=== PATIENT | female | born 1970 | race Caucasian/White ===

== ENCOUNTER 2021-05-30 14:02 | Inpatient (IN) | payer BC ==
--- OUTSIDE RECORDS SUMMARY | 2021-05-30 14:04 | XMS REPORT | Continuity of Care Document ---
:[address] [facility] t Address [address] [place] [address] Care Team Providers Name Role Phone Asked, Pcp Primary Care Physician Unavailable KENDRA Attending Clinician Unavailable Bhavin Pepper MD Attending Clinician Froy PAL Attending Clinician Payers Payer Name Policy Type Policy Effective Date Expiration Date Sour ce Number BCBSTX PPO [id number] 2015 00:00:00 BCBSBCBS CHOICE [id number] PPO/FEDERAL 00:00:00 Hospital EMPL [id number] 2015-Presen tPPO Problems Condition Condition Condition Status Onset Resolution Last Treating Co mments Source Name Details Category Date Date Treatment Clinician Date No known No known Disease Metho di active active st problems problems Hospit a l Abnormal Abnormal Problem Active Unive rs weight weight ity of gain gain [place] [facility] Proteinuri Proteinuri Problem Active [facility] [place] [facility] Fatigue Fatigue Problem Active [facility] [place] [facility] Hypothyroi Hypothyroi Problem Active U nivers dism [facility] [place] [facility] ACUTE Condition Active 2013-03-09 Mem oria SINUSITIS, 07:31:31 l UNSPECIFIE ACUTE Flora nn D SINUSITIS, UNSPECIFIE D Active Condition 03/09/2013 [facility] ALLERGY, Condition Active 2013-03-09 M emoria ENVIRONMEN 07:31:31 l JOHN ALLERGY, Marcos n ENVIRONMEN JOHN Active Condition 03/09/2013 [facility] WRIST Condition Active 2013-03-09 Mem oria PAIN, 07:31:31 l RIGHT WRIST [place] PAIN, RIGHT Active Condition 03/09/2013 [facility] FRACTURE, Condition Active 2013-03-09 Memoria RADIUS, 07:31:31 l DISTAL Jim FRACTURE, RADIUS, DISTAL Active Condition 03/09/2013 [facility] CLOSED Condition Active 2013-03-09 Mem oria FRACTURE 07:31:31 l OF DISTAL CLOSED Flora nn END OF FRACTURE ULNA OF DISTAL END OF ULNA Active Condition 03/09/2013 [facility] Hypothyroi Problem Active 2013-06-11 M emoria dism 19:19:20 l [place] Hypothyroi dism Active [facility] Abnormal Problem Active 2013-06-11 Mem oria Weight 19:19:20 l Gain Abnormal Marcos n Weight Gain Active 3 [facility] Fatigue Problem Active 2013-06-11 Saul madyson 19:19:20 l Fatigue [place] Active 3 [facility] Allergies, Adverse Reactions, Alerts This patient has no known allergies or adverse reactions. Family History Family Member Diagnosis Comments Start Date Stop Date Source Unknown Family Family history of Family History [facility] Hypothy[facility] [place] [facility] Unknown Family Family history of Family History [facility] Diabetes Mellitus [facility] Father Family history of [facility] cerebrovascular [place] accident (CVA) [facility] Natural Diabetes [facility] Hy[facility] Natural father Stroke [facility] Natural mother Hyperlipidemia [facility] Natural sister [facility] thyroiditis Hospital Social History Social Habit Start Date Stop Date Quantity Comments Source Tobacco use and 2021-03-26 2021-03-26 Never used [facility] exposure 00:00:00 00:00:00 Hospital Alcohol intake 2021-03-26 2021-03-26 Current drinker [facility] dist 00:00:00 00:00:00 of alcohol Hospital (finding) Sex Ass[birth year] At [birth year] [facility] 00:00:00 00:00:00 Hospital Smoking Status Start Date Stop Date Source Never smoker [facility] Medications Ordered Filled Start Stop Current Ordering Indication Dosage Frequency Signature Comments Components Source Medication Medication Date Date Medication? Clinician (SIG) Name Name levothyroxi Yes 50ug QD Take 1 Meth autumn ne 6-11 tablet (50 st (SYNTHROID) 00:00: mcg total) Hospita 50 mcg 00 by mouth l tablet every morning. rosuvastati Yes 5mg QD Take 1 Meth autumn n (CRESTOR) 6-11 tablet (5 st 5 mg tablet 00:00: mg total) H ospita 00 by mouth l nightly. Inna Keith Yes AYLEEN TAKE 1 Univer s Thyroid 60 Thyroid 60 5-05 WIRFEL TABLET ity of MG Oral MG Oral 00:00: M.D. DAILY [place] Tablet Tablet 00 except Physici none on tuesday No Reported Yes (Active) M emoria Medications 8-19 l 19:19: Jim 20 CLARITIN Yes as needed Saul madyson TABS 5-17 l 07:31: Jim 31 AUGMENTIN Yes per other Mem oria 875-125 MG 5-17 M.D. l TABS 07:31: Jim 31 AUGMENTIN Yes per other Mem oria 875-125 MG 1-17 M.D. l TABS 10:57: Jim 56 AUGMENTIN No per other Mem oria 875-125 MG 9-24 M.D. l TABS 10:13: Jim 33 CLARITIN No as needed Saul madyson TABS 9-24 l 10:13: Jim 33 NORCO Yes 1 PO Q 4-6 Memori a 10-325 MG 6-28 HOURS PRN l TABS 00:00: PAIN [place] 00 NORCO Yes 1 PO Q 4-6 Memori a 10-325 MG 6-28 HOURS PRN l TABS 00:00: PAIN Jim 00 Immunizations Ordered Immunization Filled Immunization Date Status Commen ts Source Name Name PFIZER COVID-19 MRNA 2021-04-20 Completed Meth [facility]ist VACCINATION 00:00:00 [facility] PFIZER COVID-19 MRNA 2021-03-27 Completed Meth odist VACCINATION 00:00:00 [facility] polio vaccine #4 2012-11-09 Completed [facility] Jim 16:57:56 polio vaccine #4 2012-07-[address] [facility] 15:13:33 polio vaccine #4 2012-06-05 Completed [facility] 12:36:21 polio vaccine #4 2012-05-[address] [facility] 14:43:03 polio vaccine #4 2012-04-19 Completed [facility] 18:06:06 Vital Signs Vital Name Observation Time Observation Value Comments Source Systolic blood 2021-03-26 20:40:00 122 mm[Hg] [facility] pressure Diastolic blood 2021-03-26 20:40:00 85 mm[Hg] [facility] pressure Heart rate 2021-03-26 20:40:00 80 /min [facility] Body height 2021-03-26 20:40:00 170.2 cm [facility] Body weight 2021-03-26 20:40:00 115.214 kg [facility] BMI 2021-03-26 20:40:00 39.78 kg/m2 [facility] Height 2012-04-13 22:38:[facility] Weight 2012-04-13 22:38:40 [facility] Systolic (mm Hg) 2012-04-13 22:38:[facility] Diastolic (mm Hg) 2012-04-13 22:38:40 [facility] Heart Rate 2012-04-13 22:38:40 [facility] Procedures Procedure Date / Time Performing Clinician Source Performed US THYROID 2021-04-08 21:44:16 [facility] THYROID STIMULATING 2021-03-31 14:33:00 [facility] HORMONE T4, FREE 2021-03-31 14:33:00 [facility] T3, FREE 2021-03-31 14:33:00 [facility] THYROID PEROXIDASE 2021-03-31 14:33:00 [facility] ANTIBODY THYROGLOBULIN ANTIBODY 2021-03-31 14:33:00 [facility]entine [facility] COMPREHENSIVE METABOLIC 2021-03-31 14:33:00 [facility] PANEL CBC WITH PLATELET AND 2021-03-31 14:33:00 Valentine Olson [facility] DIFFERENTIAL VITAMIN D 25 HYDROXY 2021-03-31 14:33:00 [facility] LEVEL VITAMIN B12 LEVEL 2021-03-31 14:33:00 Valentien Olson [facility] LIPID PANEL 2021-03-31 14:30:00 [facility] genitourinary review of 2012-04-13 22:38:40 Saul gutierrez, E&M History of [facility] [place] [facility] History of Closed [facility] Treatment [facility] Greater Tuberosity Fract, Manipulat Plan of Care Planned Activity Planned Date Details Comments Source Future Scheduled Test Hepatitis C screening [facility] (procedure) [code = 527281736] Future Scheduled Test Screening for malignant [facility] neoplasm of cervix (procedure) [code = 449456210] Future Scheduled Test BREAST CANCER SCREENING [facility] [code = BREAST CANCER SCREENING] Future Scheduled Test COLONOSCOPY SCREENING [facility] [code = COLONOSCOPY SCREENING] Future Scheduled Test SHINGLES VACCINES (#1) [facility] [code = SHINGLES VACCINES (#1)] Future Scheduled Test INFLUENZA VACCINE [code [facility] = INFLUENZA VACCINE] Encounters Start End Encounter Admission Attending Care Care Encounter Source Date/Time Date/Time Type Type Clinicians Facility Department ID 2021-02-28 Outpatient [facility] [id number] [place] 04:14:50 [facility] 2021-02-28 Outpatient [facility] [id number] [place] 04:14:50 [facility] 2021-04-20 2021-04-20 Clinical Tom, 12.840.1 [id number] Methodi 10:25:31 10:28:54 Support Moises Delcid 59933.1.[address] 3.430.2.7 Hospit a .3.051777 l .8 2021-04-20 2021-04-20 Outpatient [facility] [id number] [place] 00:00:00 00:00:00 MOISES [facility] 2021-04-08 2021-04-08 [facility] 12.840.1 [id number] Methodi 16:25:04 23:59:00 Encounter , Valentine 34369.1.1 387 s t 3.430.2.7 Hospit a .3.712153 l .8 2021-04-08 2021-04-08 [facility] [id number] [place] 00:00:00 00:00:00 , VALENTINE [address] 2021-04-08 2021-04-08 Travel 1.2.840.1 1.2.502.272 [id number] Methodi 00:00:00 00:00:[address] 3.430.2.7 0.2.7.3.698 Ho spita .3.880797 084.8 l .8 2021-04-03 2021-04-03 Orders Froy 1.2.840.1 [id number] Methodi 00:00:00 00:00:00 Only , Valentine 7[address]48.1.[address] 3.430.2.7 Hospit a .3.484406 l .8 2021-03-31 2021-03-31 Travel 1.2.840.1 1.2.835.805 [id number] Methodi 00:00:00 00:00:[address] 3.430.2.7 0.2.7.3.698 Ho spita .3.244635 084.8 l .8 2021-03-27 2021-03-27 Clinical 1.2.840.1 [id number] Methodi 15:09:41 15:25:[address] 3.430.2.7 Hospit a .3.616474 l .8 2021-03-27 2021-03-27 Outpatient [facility] [id number] [place] 00:00:00 00:00:[address] 2021-03-26 2021-03-26 Office Froy 1.2.840.1 [id number] Methodi 15:35:36 16:28:36 Visit , Valentine 61775.1.[address] 3.430.2.7 Hospit a .3.646376 l .8 2021-03-26 2021-03-26 Outpatient [facility] [id number] [place] 00:00:00 00:00:00 , VALENTINE [address] 2021-03-26 2021-03-26 Travel 1.2.840.1 1.2.953.605 [id number] Method 00:00:00 00:00:[address] 3.430.2.7 0.2.7.3.698 Ho spita .3.713278 084.8 l .8 2013-10-08 2013-06-11 EST, ROBERT JONES [id number] M emoria 11:15:00 19:19:20 Provider: MONCHO Rutledge, Status: Pen, Time: 11:15 AM 2013-06-11 2013-06-11 AUDIT ROBERT HERNANDEZIE [id number] M emoria 14:19:43 19:19:20 gerson Fernandez 2013-06-11 2013-06-11 Outpatient 1.3.6.1.4 1.3.6.1.4.1 1 [id number] 14:19:43 14:19:20 .1.02437. .72781.3.82 [id number] 86801.3.3.4 .3.3.4 2013-03-09 2013-03-09 Office nullFlavo [place] [id number] Memoria 00:00:00 00:00:00 Visit r Office [id number] gerson Fernandez 2012-11-09 2012-11-09 Office nullFlavo Christopher [id number] Memoria 00:00:00 00:00:00 Visit r Office [id number] gerson Fernandez 2012-07-17 2012-07-17 Office nullFlavo Christopher [id number] Memoria 00:00:00 00:00:00 Visit r Office [id number] gerson Fernandez 2012-06-05 2012-06-05 Office nullFlavo Christopher 04301 [id number] Memoria 00:00:00 00:00:00 Visit r Office [id number] gerson Frenandez 2012-05-11 2012-05-11 Office nullFlavo Christopher [id number] [id number] Memoria 00:00:00 00:00:00 Visit r Office [id number] gerson Fernandez 2012-05-01 2012-05-01 Office nullFlavo Christopher [id number] [id number] Memoria 00:00:00 00:00:00 Visit r Office [id number] gerosn Jim 2012-04-19 2012-04-19 Office nullFlavo Yesenia Office [id number] [id number] Memoria 00:00:00 00:00:00 Visit r [id number] gerson Jim 2012-04-13 2012-04-13 Office nullFlavo Christopher [id number] Memoria 00:00:00 00:00:00 Visit r Office [id number] gerson Jim Results Test Description Test Time Test Comments Results Result [facility] e Comments US Thyroid 2021-03-24 EXAMINATION: US [address] 22:08:33 HISTORY: E03.9 Hypothyroidism unspecified, hypothyroidism COMPARISON: None. FINDINGS: Thyroid ultrasound performed. The right thyroid lobe measures 4.2 x 1.7 x 1.7 cm. The left thyroid lobe measures 3.8 x 1.2 x 1.2 cm. Isthmus is 4 mm in thickness. No discrete nodules are seen. The thyroid gland is heterogeneous in echogenicity without hypervascularity. No enlarged lymph nodes around the thyroid gland. . IMPRESSION: Heterogeneous thyroid gland without hypervascularity or discrete nodules. [id number], Radiology Results 04/08/2021 5:11 PM CDT EXAMINATION: US THYROIDCLINICAL HISTORY: E03.9 Hypothyroidism unspecified, hypothyroidismCOMPARI SON: None.FINDINGS: Thyroid ultrasound performed.The right thyroid lobe measures 4.2 x 1.7 x 1.7 cm. The left thyroid lobe measures 3.8 x 1.2 x 1.2 cm. Isthmus is 4 mm in thickness. No discrete nodules are seen. The thyroid gland is heterogeneous in echogenicity without hypervascularity. No enlarged lymph nodes around the thyroid gland. .IMPRESSION:Heterogen eous thyroid gland without hypervascularity or discrete nodules.[facility][id number] T3, free 2021-04-01 16:29:00 Test Item Value Reference Range Interpretation Comme nts T3, free (test code = 3051-0) 3.1 pg/mL 2.3-4.2 YE (test code = YE) RAC (test code = RAC) [facility] with platelet and [id number] 16:29:00 Test Item Value Reference Range Interpretation Comments WBC (test code = See_Comment [Automated message] 6690-2) The system Hemarina h generated this result transmitted ref erence range: 3.8 - 10 .8 Thousand/uL. Th e reference range was not used to int erpret this result as normal/abnormal . RBC (test code = See_Comment [Automated message] 789-8) The system [facility] generated this result transmitted ref erence range: 3.80 - 5 .10 Million/uL. The reference range was not used to int erpret this result as normal/abnormal . HGB (test code = 13.3 g/dL 11.7-15.5 718-7) HCT (test code = 39.3 % 35.0-45.0 4544-3) MCV (test code = 90.1 fL 80.0-100.0 787-2) MCH (test code = 30.5 pg 27.0-33.0 785-6) MCHC (test code = 33.8 g/dL 32.0-36.0 786-4) RDW (test code = 12.8 % 11.0-15.0 788-0) Platelet count (test See_Comment [Autom ated message] code = 777-3) The system [facility] generated this result transmitted ref erence range: 140 - 40 0 Thousand/uL. Th e reference range was not used to int erpret this result as normal/abnormal . MPV (test code = 11.8 fL 7.5-12.5 776-5) Neutrophils, absolute See_Comment [Auto mated message] (test code = 751-8) The syst em which generated this result transmitted ref erence range: 1,500 - 7,800 cells/uL. The reference range was not used to int erpret this result as normal/abnormal . Lymphocytes, absolute See_Comment [Auto mated message] (test code = 731-0) The syst em which generated this result transmitted ref erence range: 850 - 3, 900 cells/uL. The reference range was not used to int erpret this result as normal/abnormal . Monocytes, absolute See_Comment [Automa daren message] (test code = 742-7) The syst em which generated this result transmitted ref erence range: 200 - 95 0 cells/uL. The reference range was not used to int erpret this result as normal/abnormal . Eosinophils, absolute See_Comment [Auto mated message] (test code = 711-2) The syst em which generated this result transmitted ref erence range: 15 - 500 cells/uL. The reference range was not used to int erpret this result as normal/abnormal . Basophils, absolute See_Comment [Automa daren message] (test code = 704-7) The syst em which generated this result transmitted ref erence range: 0 - 200 cells/uL. The reference range was not used to int erpret this result as normal/abnormal . Neutrophils (test code 54.4 % = 770-8) Lymphocytes (test code 34.4 % = 736-9) Monocytes (test code = 7.2 % 5905-5) Eosinophils (test code 3.1 % = 713-8) Basophils + RC (test 0.9 % code = 706-2) YE (test code = YE) RAC (test code = RAC) [facility] 25 hydroxy [id number] 16:29:00 Test Item Value Reference Range Interpretation Comments Vitamin D, 25-hydroxy (test code = 37 ng/mL 30-100 1988-3) YE (test code = YE) RAC (test code = RAC) [facility]oxidase [id number] 16:29:00 Test Item Value Reference Range Interpretation Comments Thyroperoxidase Ab (test See_Comment H [A utomated message] code = 8099-4) The system [employer] generated this result transmit daren reference range : <9 IU/mL. The refe rence range was not u sed to interpret th is result as normal/abnormal . YE (test code = YE) RAC (test code = RAC) Lab Interpretation (test Abnormal code = 23713-0) [facility] Center[facility]yroglobulin [id number] 16:29:00 Test Item Value Reference Range Interpretation Comments Thyroglobulin Ab (test See_Comment H [Aut omated message] code = 8098-6) The system [employer] generated this result transmitted ref erence range: < or = 1 IU/mL. The refe rence range was not u sed to interpret this result as normal/abnor mal. YE (test code = YE) RAC (test code = RAC) Lab Interpretation (test Abnormal code = 88228-2) [facility] [id number] 16:29:00 Test Item Value Reference Range Interpretation Comments Glucose (test code = 95 mg/dL 65-99 2345-7) BUN (test code = 13 mg/dL 7-25 3094-0) Creatinine (test 0.72 mg/dL 0.50-1.05 code = 2160-0) EGFR Non-Afr. See_Comment [Automated [place] Islander (test code message] The system = 2775) which generated this result transmitted reference range : > OR = 60 mL/min/1.73m2. The reference range was not used to interpret this result as normal/abnormal . EGFR See_Comment [Automated [place] (test code message] The system = 2774) which generated this result transmitted reference range : > OR = 60 mL/min/1.73m2. The reference range was not used to interpret this result as normal/abnormal . BUN/creatinine ratio NOT APPLICABLE See_Comment [Aut omated (test code = 3097-3) message ] The system which generated this result transmitted reference range : 6 - 22 (calc). Th e reference range was not used to interpret this result as normal/abnormal . Sodium (test code = 141 mmol/L 748-387 9267-2) Potassium (test code 4.4 mmol/L 3.5-5.3 = 2823-3) Chloride (test code 106 mmol/L 98-110 = 2075-0) CO2 (test code = 27 mmol/L 20-32 8-9) Calcium (test code = 9.4 mg/dL 8.6-10.4 36557-2) Protein (test code = 6.9 g/dL 6.1-8.1 2885-2) Albumin, S (test 4.2 g/dL 3.6-5.1 code = 1751-7) Globulin, total See_Comment [Automated (test code = message] The sy stem 27402-7) which generated this result transmitted reference range : 1.9 - 3.7 g/dL (calc). The reference range was not used to interpret this result as normal/abnormal . Albumin/globulin See_Comment [Automated ratio (test code = message] The system 1759-0) which generated this result transmitted reference range : 1.0 - 2.5 (calc ). The reference r mamadou was not used to interpret this result as normal/abnormal . Total bilirubin 0.4 mg/dL 0.2-1.2 (test code = 1975-2) Alkaline phosphatase 91 U/L 37-153 (test code = 6768-6) AST (test code = 21 U/L 10-35 1920-8) ALT (test code = 22 U/L 6-29 1742-6) YE (test code = YE) RAC (test code = RAC) [facility] [id number] 16:29:00 Test Item Value Reference Range Interpretation Comments Vitamin B12 (test code = 2132-9) 634 pg/mL 200-1100 YE (test code = YE) RAC (test code = RAC) [facility] Center[facility], [id number] 16:29:00 Test Item Value Reference Range Interpretation Comments T4, free (test code = 3024-7) 0.8 ng/dL 0.8-1.8 YE (test code = YE) RAC (test code = RAC) [facility] Center[facility]yroid stimulating [id number] 16:29:00 Test Item Value Reference Range Interpretation Comments TSH (test code = 3016-3) mIU/L H YE (test code = YE) RAC (test code = RAC) Lab Interpretation (test code = Abnormal 89342-3) [facility] Center[facility]id [id number] 08:51:00 Test Item Value Reference Range Interpretation Comments Cholesterol, total (test 277 mg/dL <200 H code = 3-3) HDL cholesterol (test 43 mg/dL See_Comment L [Auto mated message] code = 2085-9) The system ich generated this result transmit daren reference range : > OR = 50. The reference range was not used to interpret this result as normal/abnormal . Triglycerides (test code 163 mg/dL <150 H = 2571-8) LDL cholesterol mg/dL (calc) H calculated (test code = 76991-2) Cholesterol/HDL ratio See_Comment H [Auto mated message] (test code = 9830-1) [facility] tem which generated this result transmit daren reference range : <5.0 (calc). Th e reference range was not used to interpret this result as normal/abnormal . Non-HDL cholesterol See_Comment H [Automa daren message] (test code = 86921-3) The sy stem which generated this result transmit daren reference range : <130 mg/dL (melissa c). The reference r mamadou was not used to interpret this result as normal/abnormal . YE (test code = YE) RAC (test code = RAC) Lab Interpretation (test Abnormal code = 96581-4) [facility]
[2021-05-30] MEDS ORDERED: MORPHINE 4 MG/ML SYR ONE ×2 (14:59→16:16)
[2021-05-30] MEDS ORDERED: ONDANSETRON 4 MG/2 ML VIAL ONE ×3 (14:59→22:21)
[2021-05-30] MEDS ORDERED: TETANUS & DIPHTHERIA TOX,ADULT 0.5 ML VIAL ONE (14:59)
[2021-05-30] MEDS ORDERED: CEFAZOLIN/SWI 1gm 2 GM/20 ML SYR ONE (15:00)
[2021-05-30] MEDS ORDERED: NA CHLORIDE 0.9% 1,000 ML ONE (15:00)
[2021-05-30 15:04] LABS: Absolute Lymphocytes (CBC) 1.6 K/uL (0.7-4.9); Basophils % 0.5 % (0-1.3); Hematocrit 40.1 % (36.0-45.0); Lymphocytes % 16.2 % (15.3-44.8); MPV 9.8 fL (7.6-11.3); RBC Red Blood Cell Count 4.37 M/uL (3.86-4.86)
[2021-05-30 15:22] LABS: Albumin 3.8 g/dL (3.4-5.0); Bilirubin Total 0.2 mg/dL (0.2-1.0); Potassium 4.3 mmol/L (3.5-5.1); Protein, Total 7.7 g/dL (6.4-8.2)
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
--- NOTE | 2021-05-30 15:55 | RAD REPORT ---
EXAM DESCRIPTION: RAD - Forearm Right - 05/30/2021 2:55 pm CLINICAL HISTORY: PAIN COMPARISON: No comparisons FINDINGS: Displaced distal radial and ulnar diaphyseal fractures with overriding. The fractures are displaced by at least a full shaft with. Prior distal radial plate and screw fixation. The fracture e xtends to the proximal portion of the plate. IMPRESSION: Displaced distal radial and ulnar fractures with overriding and involvement of the dista l radial hardware.
[2021-05-30] MEDS ORDERED: CLINDAMYCIN 900MG/D5W 900 MG/50 ML IVPB IV ONE (16:16)
[2021-05-30 17:56] LABS: Urine Blood 1+ (Negative); Urine Glucose Negative (Negative); Urine Protein Negative (Negative); Urine Specific Gravity >=1.030 (1.005-1.030)
[2021-05-30] MEDS ORDERED: CEFAZOLIN/SWI 1gm 1 GM/10 ML SYR ONE (18:32)
[2021-05-30] MEDS ORDERED: SUCCINYLCHOLINE 20 MG/ML (10 ML) IV ONE (18:45)
[2021-05-30] MEDS ORDERED: MIDAZOLAM HCL 2 MG/2 ML INJ ONE (18:50)
[2021-05-30] MEDS ORDERED: GLYCOPYRROLATE 0.2 MG/ML SYR ONE (18:50)
[2021-05-30] MEDS ORDERED: dexAMETHasone 10 MG/ML VIAL ONE (18:50)
[2021-05-30] MEDS ORDERED: FENTANYL CITR 250 MCG/5 ML ONE (18:50)
[2021-05-30] MEDS ORDERED: propofoL 200 MG/20 ML VIAL IV ONE (18:50)
[2021-05-30] MEDS ORDERED: NEOSTIGMINE 1 MG/ML -5 ML ONE (18:51)
[2021-05-30] MEDS ORDERED: ROCURONIUM 50 MG/5 ML VIAL IV ONE (18:51)
[2021-05-30] MEDS: NA CHLORIDE 0.9% 1,000 ML IV SCH (19:13)
[2021-05-30] MEDS ORDERED: ONDANSETRON 4 MG/2 ML VIAL IV PRN ×2 (19:13→21:39)
[2021-05-30] MEDS ORDERED: Ringers Lactate 1,000 ML IV ONE (20:02)
[2021-05-30] MEDS: MEPERIDINE HCL 25 MG/ML SYR ONE ×2 (20:54→21:50)
[2021-05-30] MEDS ORDERED: NACHLORIDE 0.45% 1,000 ML IV SCH (22:00)
[2021-05-30] MEDS: FENTANYL CITR 100 MCG/2 ML ONE ×3 (22:02→22:19)
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
[2021-05-30] MEDS: MORPHINE 4 MG/ML SYR IV PRN (23:55)
[2021-05-31] MEDS ORDERED: MORPHINE 4 MG/ML SYR ONE (00:02)
[2021-05-31] MEDS: CLINDAMYCIN 600MG/D5W 600 MG/50 ML BAG IV SCH ×3 (01:00→18:05)
[2021-05-31] MEDS: CEFAZOLIN/SWI 2gm 2 GM/20 ML SYR IVP SCH ×4 (01:00→17:50)
[2021-05-31] MEDS ORDERED: CLINDAMYCIN INJ 600 MG in NA CHLORIDE 0.9% 50 ML IV SCH (01:00)
[2021-05-31] MEDS ORDERED: CEFAZOLIN/SWI 1gm 1 GM/10 ML SYR IV SCH (01:00)
[2021-05-31] MEDS: CEFAZOLIN 2 GM in NA CHLORIDE 0.9% 100 ML IVPB SCH ×2 (01:00→09:00)
[2021-05-31 01:28] VITALS: BMI 39.7
[2021-05-31] MEDS: NA CHLORIDE 0.9% 1,000 ML IV SCH (02:37)
[2021-05-31] MEDS: HYDROCODONE/APAP 10/325 TAB PO PRN ×2 (02:38→23:05)
[2021-05-31] MEDS: ENOXAPARIN 40 MG/0.4 ML SQ SCH (05:10)
[2021-05-31] MEDS: MORPHINE 4 MG/ML SYR IV PRN (05:10)
--- NOTE | 2021-05-31 06:04 | P.PN ---
Subjective Date of Service: 05/31/21 Chief Complaint: Open periprosthetic right ulnar/radial fracture Subjective: Improving, Doing well Physical Examination - Vital Signs Temperature: 97.4 F Blood Pressure: 142/76 Pulse: 89 Respirations: 16 Pulse Ox (%): 95 - Studies Laboratory Data (last 24 hrs) 05/30/21 14:46: Sodium 143, Potassium 4.3, BUN 14, Creatinine 0.80, Glucose 129 H, Total Bilirubin 0.2, AST 18, ALT 32, Alkaline Phosphatase 115 05/30/21 14:46: WBC 9.70, Hgb 13.3, Hct 40.1, Plt Count 224 Assessment & Plan Discharge Plan: Home Plan to discharge in: 48 Hours Physician Review Additional Text: COVID: negative Xray: COMPARISON: No comparisons FINDINGS: Displaced distal radial and ulnar diaphyseal fractures with overriding. The fractures are displaced by at least a full shaft with. Prior distal radial plate and screw fixation. The fracture extends to the proximal portion of the plate. IMPRESSION: Displaced distal radial and ulnar fractures with overriding and involvement of the distal radial hardware. Surgery: Date 05/30/2021 Surgeon: Aleksey Andersen MD Preoperative Diagnoses: 1. Open both bones right forearm fracture. 2. Retained hardware, right distal radius fracture. Postoperative Diagnoses: 1. Open both bones right forearm fracture. 2. Retained hardware, right distal radius fracture. Procedures Performed: 1. Irrigation and debridement of extensive grade 2 open radius fracture. 2. Removal of deep hardware. 3. Open reduction and internal fixation of right radius and ulna fracture. 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 Anesthesia: General. Physical exam: General: Alert, In no apparent distress, Oriented x3 HEENT: Atraumatic, PERRLA, Mucous membr. moist/pink, EOMI, Sclerae nonicteric Neck: Supple, 2+ carotid pulse no bruit, No LAD, Without JVD or thyroid abnormality Respiratory: Clear to auscultation bilaterally, Normal air movement Cardiovascular: Regular rate/rhythm, Normal S1 S2 Gastrointestinal: Normal bowel sounds, No tenderness Musculoskeletal: Postop changes noted. Right arm in splint with Derrell wrap in place. Integumentary: No rashes Neurological: Normal speech, Normal tone, Normal affect Impression: Open periprosthetic fracture of the right radius/ulna status post irrigation/debridement of extensive grade 2 open radius fracture with removal of deep hardware and open reduction and internal fixation of the right radius and ulnar fracture Hyperlipidemia Plan: Open periprosthetic fracture of the right radius/ulna status post irrigation/debridement of extensive grade 2 open radius fracture with removal of deep hardware and open reduction and internal fixation of the right radius and ulnar fracture: Management per orthopedics. Patient doing well postoperatively. Currently on IV cefazolin and clindamycin. Patient will need 3 days of IV antibiotic therapy. Likely home after Tuesday. Will discuss further with orthopedics. Continue with orthopedic recommendations. Continue with pain medication. Discontinue IV fluids. Will follow along with orthopedics. I will turn to service over to the hospitalist team tomorrow. I will go plan of care with him. Hyperlipidemia: Patient plans to discontinue her medication. DVT PPX: SCDs at this time. 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
[2021-05-31 06:07] LABS: Absolute Lymphocytes (CBC) 0.8 K/uL (0.7-4.9); Basophils % 0.3 % (0-1.3); Hematocrit 36.3 % (36.0-45.0); Lymphocytes % 8.1 % (15.3-44.8); MPV 9.9 fL (7.6-11.3); RBC Red Blood Cell Count 3.98 M/uL (3.86-4.86)
[2021-05-31 06:22] LABS: Potassium 4.4 mmol/L (3.5-5.1)
--- NOTE | 2021-05-31 06:27 | OP ---
Surgeon: Aleksey Andersen MD Preoperative Diagnoses: 1.Open both bones right forearm fracture. 2.Retained hardware, right distal radius fracture. Postoperative Diagnoses: 1.Open both bones right forearm fracture. 2.Retained hardware, right distal radius fracture. Procedures Performed: 1.Irrigation and debridement of extensive grade 2 open radius fracture. 2.Removal of deep hardware. 3.Open reduction and internal fixation of right radius and ulna fracture. Wood Cutter: None. Anesthesia: General. Disposition: Recovery room, stable. Operative Report In Detail: The patient was taken to the operative suite, placed in the supine posit ion induced anesthesia. The right upper extremity was prepped and draped in usual sterile fashion. The traumatic incision was created just at the end of the previously placed plate approximately 7 yea rs ago. There was a large butterfly fragment. The traumatic extension was extended and due to the l ocation of it, the volar approach was appropriate. However, the plate was directly in the way. Fort unately, we had the utensils in which to remove the plate, which was done with some difficulty as we had to search for the distal screw shreds, but indeed this was accomplished. Virtually, anatomic red uction was then achieved. Prior to this, copious irrigation with 4 L of sterile saline was performed . This was repeated throughout the process. The wound was irrigated once again. It was fixated wit h a diffuse titanium small fragment dynamic compression plate. These were all placed in neutral. Th ere was a large butterfly fragment that was pulled into place as close as possible. After this was p erformed, incision was left open. The ulna was then approached and a 6-hole plate with the usual fas hion was placed. A layered closure was then performed. A sugar-tong splint. The patient has been r eversed to Anesthesia at the time of this dictation. BINH/WILSON Voice ID: [id number] Report ID: [id number]
[2021-05-31] MEDS: MORPHINE 2 MG/ML SYR IV PRN ×4 (10:09→21:13)
[2021-05-31 11:00] LABS: Blood Morphology Comment NOT SEEN (NOT SEEN); Platelet Estimate ADEQ; White Blood Cell Scan OK (OK)
--- NOTE | 2021-05-31 12:40 | P.PN ---
Subjective Date of Service: 05/31/21 Chief Complaint: Open periprosthetic right ulnar/radial fracture Subjective: No C/O voiced, Tolerating diet, Ambulating, Doing well (n-v intact will need nine doses of ABX post op) Physical Examination - Vital Signs Temperature: 98.2 F Blood Pressure: 115/66 Pulse: 81 Respirations: 14 Pulse Ox (%): 96 - Studies Laboratory Data (last 24 hrs) 05/30/21 14:46: Sodium 143, Potassium 4.3, BUN 14, Creatinine 0.80, Glucose 129 H, Total Bilirubin 0.2, AST 18, ALT 32, Alkaline Phosphatase 115 05/30/21 14:46: WBC 9.70, Hgb 13.3, Hct 40.1, Plt Count 224 Assessment And Plan Physician Review Additional Text: COVID: negative Xray: COMPARISON: No comparisons FINDINGS: Displaced distal radial and ulnar diaphyseal fractures with overrid ing. The fractures are displaced by at least a full shaft with. Prior distal radial plate and screw fixation. The fracture extends to the proximal portion of the plate. IMPRESSION: Displaced distal radial and ulnar fractures with overriding and involvement of the distal radial hardware. Physical exam: General: Alert, In no apparent distress, Oriented x3 HEENT: Atraumatic, PERRLA, Mucous membr. moist/pink, EOMI, Sclerae nonicteric Neck: Supple, 2+ carotid pulse no bruit, No LAD, Without JVD or thyroid abnormality Respiratory: Clear to auscultation bilaterally, Normal air movement Cardiovascular: Regular rate/rhythm, Normal S1 S2 Gastrointestinal: Normal bowel sounds, No tenderness Musculoskeletal: No tenderness, Other (Right arm splint/Derrell wrap in place. Patient with open fracture to the right forearm.) Integumentary: No rashes Neurological: Normal speech, Normal tone, Normal affect Impression: Open periprosthetic fracture of the right radius/ulna Hyperlipidemia Plan: Open periprosthetic fracture of the right radius/ulna: Management per orthopedics. Patient taken to the OR this evening. Hyperlipidemia: Continue medications, check lipid panel DVT PPX: SCDs at this time. Code status: Full
[2021-05-31] MEDS ORDERED: CEFAZOLIN/SWI 2gm 2 GM/20 ML SYR IVP SCH (17:00)
[2021-06-01] MEDS: CEFAZOLIN/SWI 2gm 2 GM/20 ML SYR IVP SCH ×3 (01:02→16:55)
[2021-06-01] MEDS: CLINDAMYCIN 600MG/D5W 600 MG/50 ML BAG IV SCH ×3 (01:02→16:55)
[2021-06-01] MEDS: MORPHINE 2 MG/ML SYR IV PRN ×2 (01:06→05:52)
[2021-06-01] MEDS: ENOXAPARIN 40 MG/0.4 ML SQ SCH (05:26)
--- NOTE | 2021-06-01 07:45 | RAD REPORT ---
EXAM DESCRIPTION: RAD - Wrist Right 2 View - 05/30/2021 9:34 pm CLINICAL HISTORY: Radial fracture FINDINGS: Plate and screws affix fractures of the distal radius and ulna. Eleven intraoperative fluoroscopic spot images obtained. Fluoroscopy time 0.4 minutes Surgery performed by Dr. Andersen
[2021-06-01] MEDS: HYDROCODONE/APAP 10/325 TAB PO PRN (09:54)
[2021-06-01] MEDS ORDERED: HYDROCODONE/APAP 5/325 MG TAB PO PRN (15:55)
[2021-06-01] MEDS: ACETAMINOPHEN 325 MG TABLET PO PRN (16:58)
--- NOTE | 2021-06-01 17:40 | P.PN ---
Subjective Date of Service: 06/01/21 Chief Complaint: Open periprosthetic right ulnar/radial fracture Subjective: Improving <Alicia Tariq - Last Filed: 06/01/21 17:36> Date of Service: 06/01/21 <Jen Spencer - Last Filed: 06/08/21 09:22> Review of Systems General: Unremarkable Eyes: Unremarkable ENT: Unremarkable Respiratory: Unremarkable Cardiovascular: Unremarkable Gastrointestinal: Unremarkable Genitourinary: Unremarkable Musculoskeletal: Arm Pain, Hand Pain Integumentary: Unremarkable Neurological: Unremarkable Lymphatics: Unremarkable <Alicia Tariq - Last Filed: 06/01/21 17:36> Physical Examination - Vital Signs Temperature: 97.4 F Blood Pressure: 97/53 Pulse: 71 Respirations: 18 Pulse Ox (%): 99 - Physical Exam General: Alert, In no apparent distress, Oriented x3 HEENT: Atraumatic, PERRLA, EOMI Neck: Supple, JVD not distended Respiratory: Clear to auscultation bilaterally, Normal air movement Cardiovascular: Regular rate/rhythm, Normal S1 S2 Capillary refill: <2 Seconds Gastrointestinal: Normal bowel sounds, No tenderness Musculoskeletal: No clubbing, No tenderness, Tenderness, Other (Right arm s welling ) Integumentary: No rashes Neurological: Normal speech, Normal tone, Normal affect Lymphatics: No axilla or inguinal lymphadenopathy External genitalia: Deferred Rectal: Deferred <Aliica Tariq - Last Filed: 06/01/21 17:36> Assessment And Plan - Plan --Open periprosthetic fracture of the right radius/ulna status post irrigation/debridement of extensive grade 2 open radius fracture with removal of deep hardware and open reduction and internal fixation of the right radius and ulnar fracture: Management per orthopedics. Patient doing well postoperatively. Currently on IV cefazolin and clindamycin. Day 2 of 3 days of IV antibiotic therapy. Likely home after Tuesday. Continue with orthopedic recommendations. --Acute pain. Continue with pain medication. Will follow along with orthopedics --Hyperlipidemia: Patient plans to discontinue her medication. DVT PPX: Lovenox subQ Code status: Full Discharge Plan: Home Plan to discharge in: 24 Hours - Code Status/Comfort Care Code Status Assessed: Yes Physician Review: Patient Assessed, Agree with Above Assessment and Plan Critical Care: No <Alicia Tariq - Last Filed: 06/01/21 17:36> Date of Service: 06/01/21 Continue with current plan of care; agree with findings as mentioned above <Jen Spencer - Last Filed: 06/08/21 09:22>
[2021-06-02] MEDS: CEFAZOLIN/SWI 2gm 2 GM/20 ML SYR IVP SCH ×3 (01:16→16:11)
[2021-06-02] MEDS: CLINDAMYCIN 600MG/D5W 600 MG/50 ML BAG IV SCH ×3 (01:17→16:11)
[2021-06-02 05:36] LABS: Absolute Lymphocytes (CBC) 2.2 K/uL (0.7-4.9); Basophils % 0.8 % (0-1.3); Hematocrit 33.2 % (36.0-45.0); Lymphocytes % 38.7 % (15.3-44.8); MPV 9.6 fL (7.6-11.3); RBC Red Blood Cell Count 3.61 M/uL (3.86-4.86)
[2021-06-02 05:40] LABS: Potassium 3.8 mmol/L (3.5-5.1)
[2021-06-02] MEDS: ENOXAPARIN 40 MG/0.4 ML SQ SCH (06:00)
[2021-06-02] MEDS: ACETAMINOPHEN 325 MG TABLET PO PRN ×2 (11:40→21:55)
[2021-06-02 17:23] VITALS: O2SAT 99
[2021-06-03] MEDS: CLINDAMYCIN 600MG/D5W 600 MG/50 ML BAG IV SCH ×2 (01:36→08:26)
[2021-06-03] MEDS: CEFAZOLIN/SWI 2gm 2 GM/20 ML SYR IVP SCH (01:37)
[2021-06-03] MEDS: ENOXAPARIN 40 MG/0.4 ML SQ SCH (06:45)
[2021-06-03 09:09] VITALS: BP 139/78; TEMP 97.4
[2021-06-03] MEDS: ACETAMINOPHEN 325 MG TABLET PO PRN (09:15)
--- NOTE | 2021-06-08 09:32 | P.PN ---
Subjective Date of Service: 06/02/21 Patient is clinically doing well with no new complaints. Pt is currently is improving. Review of Systems 10-point ROS is otherwise unremarkable Physical Examination - Vital Signs Temperature: 97.4 F Blood Pressure: 139/78 Pulse: 71 Respirations: 16 Pulse Ox (%): 97 - Physical Exam General: Alert, In no apparent distress, Oriented x3 Respiratory: Diminished Cardiovascular: Regular rate/rhythm, Normal S1 S2 Gastrointestinal: Normal bowel sounds, Soft and benign, Non-distended Musculoskeletal: No clubbing Neurological: Normal tone, Sensation intact, Cranial nerves 3-12 intact Assessment & Plan - Problems (Diagnosis) (1) Radius/ulna fracture Status: Acute - Plan Plan: - Continue with IV antibiotic - Continue with local wound care - Orthopedic follow up - Gentle IV hydration - Monitor CBC - Strict blood sugar monitoring - Pain control - GI and DVT prophylaxis Discharge Plan: Home Plan to discharge in: 48 Hours - Advance Directives Does patient have a Living Will: No Does patient have a Durable POA for Healthcare: No - Code Status/Comfort Care Code Status Assessed: Yes Code Status: Full Code Physician Review: Patient Assessed, Agree with Above Assessment and Plan Critical Care: No Time Spent Managing PTS Care (In Minutes): 35
--- NOTE | 2021-06-08 09:35 | P.DS ---
Discharge Date: 06/03/21 Disposition: ROUTINE DISCHARGE Discharge Condition: GOOD Reason for Admission: Open periprosthetic right ulnar/radial fracture Consultations: Orthopedics - Problems (1) Radius/ulna fracture Status: Acute Brief History of Present Illness: Patient is a 50-year-old female who came into the hospital with a radius and ulnar fracture which was open. Hardware from an old radial injury was also removed. Dr. Andersen admit the patient after repairing to treat with IV antibiotic therapy extensive wound care. Hospital Course: Patient had done well during hospital stay. Clinically patient is doing well. At this time, patient is stable for discharge home. Vital Signs/Physical Exam: Temp Pulse Resp BP Pulse Ox 97.4 F 71 16 139/78 97 06/08/21 09:32 06/08/21 09:32 06/08/21 09:32 06/08/21 09:32 06/08/21 09:32 General: Alert, In no apparent distress, Oriented x3 Laboratory Data at Discharge: WBC 5.60 K/uL (4.3-10.9) D 06/02/21 05:14 Hgb 11.3 g/dL (12.0-15.0) L 06/02/21 05:14 Hct 33.2 % (36.0-45.0) L 06/02/21 05:14 Plt Count 203 K/uL (152-406) 06/02/21 05:14 Sodium 141 mmol/L (136-145) 06/02/21 05:14 Potassium 3.8 mmol/L (3.5-5.1) 06/02/21 05:14 BUN 11 mg/dL (7-18) 06/02/21 05:14 Creatinine 0.70 mg/dL (0.55-1.3) 06/02/21 05:14 Glucose 90 mg/dL (74-106) 06/02/21 05:14 Total Bilirubin 0.2 mg/dL (0.2-1.0) 05/30/21 14:46 AST 18 U/L (15-37) 05/30/21 14:46 ALT 32 U/L (12-78) 05/30/21 14:46 Alkaline Phosphatase 115 U/L (45-117) 05/30/21 14:46 Triglycerides 87 mg/dL (<150) 05/31/21 05:34 Cholesterol 257 mg/dL (<200) H 05/31/21 05:34 HDL Cholesterol 48 mg/dL (40-60) 05/31/21 05:34 Cholesterol/HDL Ratio 5.35 05/31/21 05:34 Home Medications: Amox/Clavulanate [Augmentin 875-125 Tab] 875 mg PO Q12H 10 Days #20 tab 06/02/21 clindamycin HCL [Clindamycin HCl] 300 mg PO Q8H 10 Days #30 capsule 06/02/21 New Medications: Amox/Clavulanate [Augmentin 875-125 Tab] 875 mg PO Q12H 10 Days #20 tab clindamycin HCL [Clindamycin HCl] 300 mg PO Q8H 10 Days #30 capsule Physician Discharge Instructions: OK TO DC IV AND DC HOME FOLLOW-UP WITH PRIMARY CARE PROVIDER IN 1-2 WEEKS FOLLOW-UP WITH Orthopedics in 1-2 weeks RETURN TO THE ER IF symptoms worsen CALL or TEXT DR. TOURE AT [phone] IF ANY QUESTIONS REGARDING HOSPITAL STAY. PLEASE CALL THE FLOOR AT [phone] IF ANY MEDICATION OR NURSING QUESTIONS. Diet: AHA Activity: Fall precautions Followup: Aleksey Andersen MD [ACTIVE - CAN ADMIT] - OOTOVLAD [Primary Care Provider] - Time spent managing pt's care (in minutes): 35
== END 2021-06-03 09:15 | disposition home or self-care (01) | DRG 496 ==
LOC: ER 14:02 → ERHOLD 18:08 → 2ND 05-31 02:08 → OBSVTOIN 05-31 15:48
PROVIDERS: ADMIT Orthopaedic Surgery; ATTEND Orthopaedic Surgery
PROC: 0PPH04Z Removal of Internal Fixation Device from Right Radius, Open Approach (ICD-10-PCS; 2021-05-30)
PROC: 0PSK04Z Reposition Right Ulna with Internal Fixation Device, Open Approach (ICD-10-PCS; 2021-05-30)
PROC: 0PSH04Z Reposition Right Radius with Internal Fixation Device, Open Approach (ICD-10-PCS; principal; 2021-05-30 18:00)
DX: S52.501B Unspecified fracture of the lower end of right radius, initial encounter for open fracture type I or II (principal); T84.018A Broken internal joint prosthesis, other site, initial encounter; S52.201B Unspecified fracture of shaft of right ulna, initial encounter for open fracture type I or II; W22.8XXA Striking against or struck by other objects, initial encounter; Y92.814 Boat as the place of occurrence of the external cause; E78.5 Hyperlipidemia, unspecified; Z20.822 Contact with and (suspected) exposure to COVID-19
CPT/HCPCS: 36415; 80048; 80053; 80061; 81003; 81025; 85025; 90471; 90714; 96365; 96375; 99285; G0378; J0330; J0690; J1100; J1650; J2175; J2250; J2270; J2405; J2704; J2710; J3010; J7030; J7120; U0003